=== PATIENT | female | born 1950 | race Caucasian/White ===

== ENCOUNTER 2017-02-20 22:54 | Emergency (ER) | payer OTHER ==
[2017-02-21 02:42] VITALS: BP 161/61
== END 2017-02-21 02:40 | disposition home or self-care (01) ==
LOC: ED 22:54
DX: S92.425A Nondisplaced fracture of distal phalanx of left great toe, initial encounter for closed fracture (principal); I10 Essential (primary) hypertension; E11.9 Type 2 diabetes mellitus without complications; J45.909 Unspecified asthma, uncomplicated; Z79.899 Other long term (current) drug therapy; W20.8XXA Other cause of strike by thrown, projected or falling object, initial encounter; Y93.89 Activity, other specified; Y92.89 Other specified places as the place of occurrence of the external cause; Y99.8 Other external cause status
CPT/HCPCS: Q0092

== ENCOUNTER 2020-10-18 10:26 | Emergency (ER) | payer OTHER ==
[~2020-10-18] VITALS: Ht 165.1 cm; Wt 81.6 kg
[2020-10-18 11:04] VITALS: Ht 165.1 cm; Wt 81.6 kg
[2020-10-18 14:30] VITALS: BP 105/43
== END 2020-10-18 14:30 | disposition home or self-care (01) ==
LOC: ED 10:26
DX: I82.402 Acute embolism and thrombosis of unspecified deep veins of left lower extremity (principal); I10 Essential (primary) hypertension; E11.9 Type 2 diabetes mellitus without complications; J45.909 Unspecified asthma, uncomplicated; E78.00 Pure hypercholesterolemia, unspecified
CPT/HCPCS: 82962; J1650; J1885; J2270